=== PATIENT | male | born 1955 | race Caucasian/White ===

== ENCOUNTER → 2020-01-29 12:12 | Outpatient (CLI) | payer MEDICARE, SELFPAY ==
--- NOTE | ~2020-01-29 | XR_ITS ---
XR femur LT min 2V, XR hip LT 2V w AP pelvis 01/29/2020 13:11 Indication: Left leg and hip pain Procedure: 3 views left hip and 4 views left femur Comparison: No prior studies for comparison. Findings: Pelvic rings are intact. Mild degenerative changes of the lower lumbar spine and hips. Sacr al foramen are symmetric. No fracture or traumatic malalignment. Impression: 1: Mild polyarticular osteoarthritis. Reviewed, dictated and finalized at location B. NG TECHNICIAN Impression: 1: Mild polyarticular osteoarthritis. Impression: 1: Mild polyarticular osteoarthritis.
--- NOTE | ~2020-01-29 | XR_ITS ---
EXAMINATION: XR tibia fibula LT 2V DATE: 01/29/2020 13:11 INDICATION: Left lower leg injury and pain. TECHNIQUE: 2 views of left tibia and fibula were obtained. COMPARISON: None. FINDINGS: Bone alignment is normal. No fracture. Joint spaces are well maintained. IMPRESSION: 1. No fracture. Reviewed, dictated and finalized at location A. CASHIER IMPRESSION: 1. No fracture.
--- NOTE | ~2020-01-29 | XR_ITS ---
XR knee LT 2V 01/29/2020 13:11 Indication: Left leg pain Procedure: 2 views left knee Comparison: No prior studies for comparison. Findings: Mild degenerative changes of the left knee. No fracture, subluxation or dislocation. No sig nificant joint effusion Impression: 1: Mild osteoarthritis of the left knee. Reviewed, dictated and finalized at location B. ICAL PROGRAM MANAGER Impression: 1: Mild osteoarthritis of the left knee.
== END ==
PROVIDERS: PCP Family Medicine; Visit Provider Family Medicine
DX: M16.12 Unilateral primary osteoarthritis, left hip (principal); M17.12 Unilateral primary osteoarthritis, left knee
CPT/HCPCS: 73502; 73521; 73552; 73560; 73590

== ENCOUNTER → 2021-01-24 16:57 | Outpatient (CLI) | payer MEDICARE, SELFPAY ==
--- NOTE | ~2021-01-24 | XR_ITS ---
EXAMINATION: XR shoulder RT min 2V DATE: 01/24/2021 19:14 INDICATION: Unspecified fall, initial encounter. TECHNIQUE: 4 views of right shoulder were obtained. COMPARISON: None. FINDINGS: Bone alignment is normal. No fracture. Glenohumeral joint is normal. There is mild osteoart hritis of the acromioclavicular joint. IMPRESSION: 1. Mild osteoarthritis of the acromioclavicular joint. Reviewed, dictated and finalized at location A. SKINNER
--- NOTE | ~2021-01-24 | XR_ITS ---
EXAMINATION: XR ribs RT 2V w CXR 2V DATE: 01/24/2021 19:14 INDICATION: Unspecified fall, initial encounter. Right chest pain. TECHNIQUE: Frontal and lateral views of the chest and 3 views of the right ribs were obtained. COMPARISON: chest two views 10/31/12 FINDINGS: CHEST TWO VIEWS: There is mild osteoarthritis at the lung bases. No pleural effusion or pneumothorax. The heart size is normal. There is an electrode in left neck with an electronic device overlying lef t chest. RIGHT RIBS: There is an old healed fracture of right fifth rib. There is an old healed fracture of di stal right clavicle. IMPRESSION: 1. No acute fracture. Reviewed, dictated and finalized at location A. RONMENTAL STUDIES FACULTY MEMBER IMPRESSION: 1. No acute fracture.
--- NOTE | ~2021-01-24 | XR_ITS ---
EXAMINATION: XR hip RT 2V w AP pelvis DATE: 01/24/2021 19:14 INDICATION: Unspecified fall, initial encounter. TECHNIQUE: An anteroposterior view of the pelvis and 2 views of right hip were obtained. COMPARISON: Pelvis radiograph 01/29/2020 FINDINGS: There is dextroscoliosis and severe spondylosis of lumbar spine. No fracture. There is mild osteoarthritis of the hips. IMPRESSION: 1. Mild osteoarthritis of the hips. Reviewed, dictated and finalized at location A. TLE VENEERING SUPERVISOR
== END ==
PROVIDERS: Visit Provider Family Medicine
DX: R07.89 Other chest pain (principal); M16.0 Bilateral primary osteoarthritis of hip; M25.511 Pain in right shoulder
CPT/HCPCS: 71046; 71100; 73030; 73502

== ENCOUNTER → 2022-07-02 08:41 | Outpatient (CLI) | payer MEDICARE, SELFPAY ==
--- NOTE | ~2022-07-02 | US_ITS ---
EXAMINATION: US right upper quadrant DATE: 07/02/2022 09:16 INDICATION: Abnormal levels of other serum enzymes. TECHNIQUE: Multiple grayscale and Doppler ultrasound images of the abdomen were obtained. COMPARISON: CT abdomen and pelvis 05/07/2014 FINDINGS: The visualized portions of the head and body of the pancreas are normal. The liver is trisha l without focal lesion. There is normal flow in main portal vein. The gallbladder is normal in size. No gallstones or gallbladder wall thickening. There is no sonographic sign. The common duct is normal and measures 4 mm. IMPRESSION: 1. Normal right upper quadrant ultrasound. Reviewed, dictated and finalized at location A.
== END ==
PROVIDERS: PCP Family Medicine; Visit Provider Family Medicine
DX: R74.8 Abnormal levels of other serum enzymes (principal)
CPT/HCPCS: 76705

== ENCOUNTER 2022-09-15 17:26 | Emergency (ER) | payer MEDICARE, SELFPAY ==
--- NOTE | ~2022-09-15 | XR_ITS ---
EXAMINATION: XR ribs LT 2V w CXR 2V Exam Date/Time: 09/15/2022 18:00 CDT HISTORY: left side chest wall pain. fall around 2 weeks ago Comparison: 01/24/2021. RESULT: Lines, tubes, and devices: Left chest stimulator pack, leads terminate over the left lower neck. Lungs and pleura: Left basilar scar, otherwise clear. Cardiomediastinal silhouette: Stable. Other: No acute osseous or upper abdominal finding. Thoracolumbar scoliosis. IMPRESSION: No acute cardiopulmonary process. No acute osseous finding in the left ribs. Reviewed, dictated and finalized at location K.
--- NOTE | 2022-09-15 17:29 | ED.CHESTPAIN ---
HPI - Chest Pain General Chief Complaint: Fall Stated Complaint: CHEST PAIN Time Seen by Provider: 09/15/22 17:38 Source: patient, family (brother) and RN notes reviewed Mode of arrival: ambulatory Limitations: no limitations History of Present Illness HPI narrative: 66-year-old male with history of epilepsy presents to the [facility] with left-sided chest wall pain that occurred approximately 2:00 p.m. today. Patient's brother gives history. Patient fell approximately 2 weeks ago landing with the left chest on a wooden TV tray. Broke a small table. Was not seen at that time. Intermittently over the last 2-3 weeks has been stating he is having pain to the left ribs with movement and with doing his exercises. Called primary care provider and was referred to the [facility] for x-ray. Currently pain-free. Unable to reproduce any pain of the chest wall or abdomen. No bruising, swelling noted. No signs of infection. Patient is nontoxic and in no distress. When patient is asked about his pain he points to the anterior, lateral ribs and into the left upper abdomen. Currently pain-free and unable to reproduce pain Onset (ago): week(s) (2-3) Related Data Home Medications Medication Instructions Recorded Confirmed calcium carbonate 600 mg calcium 600 mg PO BID 02/12/20 09/15/22 (1,500 mg) tablet (Calcium) levetiracetam 1,000 mg tablet 1,000 mg PO DAILY 03/17/21 09/15/22 cenobamate 100 mg tablet (Xcopri) 200 mg PO DAILY 11/13/21 09/15/22 divalproex 500 mg tablet,extended 500 mg PO DAILY 06/11/22 09/15/22 release 24 hr Allergies Allergy/AdvReac Type Severity Reaction Status Date / Time No Known Allergies Allergy Verified 09/15/22 17:29 Review of Systems Review of Systems: All systems reviewed & are unremarkable except as noted in HPI and below Constitutional: Constitutional: Reports no additional constitutional complaints, Denies chills and Denies fever(s) Eyes: Eyes: Reports no additional eye complaints ENT: Reports system reviewed and no additional complaints, except as documented Cardiovascular: Cardiovascular: Reports no additional cardiovascular complaints Respiratory: Respiratory: Reports no additional respiratory complaints Gastrointestinal: Gastrointestinal: Reports no additional gastrointestinal complaints Musculoskeletal: Musculoskeletal: Reports as per HPI Integumentary/Breasts: Skin/Breast: Reports system reviewed and no additional complaints, except as docu Neurologic: Reports system reviewed and no additional complaints, except as documented Psychiatric: Psychiatric: Reports no additional psychiatric complaints Allergic/Immunologic: Allergic/Immunologic: Reports no additional allergic/immunologic complaints PMFSH Past Medical History Medical History (Updated 09/15/22 @ 19:10 by Christina Lr APRN) Ambulatory dysfunction Dysmetabolic syndrome X Elevated liver enzymes Epilepsy Hepatitis C antibody test negative (05/19/17) Mixed hyperlipidemia Weakness Surgical History Surgical History (Updated 09/15/22 @ 19:10 by Christina Lr APRN) History of brain surgery Family History Family History Father Diabetes mellitus Hypertension Mother Hypertension Family history of elevated blood lipids Other Family history of cardiovascular disease Family history of coronary artery disease Family history of osteoarthritis Social History Social History Smoking status: Never smoker Alcohol intake: never Comments At the time of my signature, I reviewed and agree with the nursing past medical, surgical, social, and family history. There is no relevant family history pertinent to the patient complaint. Exam Const: General: healthy appearing, no acute distress, alert and well nourished Nutritional Appearance: well nourished Orientation/consciousness: patient sidney
[2022-09-15 17:38] VITALS: BP 135/72; PULSE 48; RESP 18; TEMP 35.9; O2SAT 99
--- NOTE | 2022-09-15 17:51 | ECG_ITS ---
Measurements Intervals [place] Rate: 48 P: 39 OK: 155 QRS: 34 QRSD: 90 T: 44 QT: 433 QTc: 390 Interpretive Statements SINUS BRADYCARDIA POSSIBLE RIGHT VENTRICULAR CONDUCTION DELAY [RSR (QR) IN V1/V2] BORDERLINE ECG NO PREVIOUS ECG AVAILABLE FOR COMPARISON Electronically Signed On 09-16-2022 10:17:19 CDT by Luis Enrique Flowers M.D.
[2022-09-15 18:40] VITALS: PULSE 58; O2SAT 97
== END 2022-09-15 18:44 | disposition home or self-care (01) ==
PROVIDERS: Emergency Provider Nurse Practitioner; PCP Family Medicine
DX: R07.89 Other chest pain (principal); R00.1 Bradycardia, unspecified; E78.2 Mixed hyperlipidemia; G40.909 Epilepsy, unspecified, not intractable, without status epilepticus; E88.81 Metabolic syndrome and other insulin resistance
CPT/HCPCS: 71046; 71100; 93005; 99213; G0463

== ENCOUNTER 2022-12-21 17:56 | Emergency (ER) | payer MEDICARE, SELFPAY ==
--- NOTE | ~2022-12-21 | XR_ITS ---
EXAM: XR shoulder LT min 2V DATE: 12/21/2022 19:14 HISTORY: left shoulder pain radiates down arm/no injury . COMPARISON: 06/10/2012. FINDINGS: Left chest stimulator, leads projecting over the lower neck. Decreased mineralization. No fracture or dislocation. No lytic or blastic lesion. Mild degenerative change at the acromioclavicula r joint and glenohumeral joint. No erosion or periosteal change. Soft tissues within normal limits. IMPRESSION: Mild polyarticular osteoarthritis. Reviewed, dictated and finalized at location K. ING MACHINE TENDER
[2022-12-21 18:16] VITALS: BP 135/84; PULSE 91; RESP 16; TEMP 36.4; O2SAT 99
--- NOTE | 2022-12-21 19:00 | ED.GENADULT ---
HPI - General Adult General Chief complaint: Extremity Problem,Nontraumatic Stated complaint: lt shoulder/arm pain Time Seen by Provider: 12/21/22 19:22 Source: patient, RN notes reviewed and old records reviewed Mode of arrival: ambulatory Limitations: no limitations History of Present Illness HPI narrative: 67-year-old male presents to [facility] accompanied by [id number] with complaints of pain to his left shoulder radiating down his arm. Patient has been attending physical therapy and thinks he may of over done it. Patient reports that when he moves his arm a certain way it makes his shoulder hurt worse. Patient reports that pain radiates down his left lower arm at times. Patient denies any tingling or numbness to his left arm. MD complaint: left shoulder pain Onset (ago): day(s) (3) Location: upper extremity (left shoulder) Severity scale (1-10): 4 Treatments prior to arrival: none Related Data Home Medications Medication Instructions Recorded Confirmed calcium carbonate 600 mg calcium 600 mg PO BID 02/12/20 12/21/22 (1,500 mg) tablet (Calcium) aspirin 325 mg tablet 325 mg PO DAILY 12/10/22 12/21/22 cenobamate 100 mg tablet (Xcopri) 300 mg PO QHS 12/10/22 12/21/22 cholecalciferol (vitamin D3) 25 25 mcg PO DAILY 12/10/22 12/21/22 mcg (1,000 unit) capsule docusate sodium 100 mg capsule 100 mg PO DAILY 12/10/22 12/21/22 (Dulcolax Stool Softener (docusate)) levetiracetam 1,000 mg tablet 1,000 mg PO DAILY 12/10/22 12/21/22 multivitamin 1 tablet PO DAILY 12/10/22 12/21/22 Allergies Allergy/AdvReac Type Severity Reaction Status Date / Time No Known Allergies Allergy Verified 12/21/22 18:09 Review of Systems Review of Systems: CONSTITUTIONAL: Denies fever, chills, or sweats. EYES: Denies visual changes, redness, or discharge. ENT: Denies rhinorrhea, congestion, sore throat, or otalgia. CARDIOVASCULAR: Denies chest pain, palpitations, or edema. RESPIRATORY: Denies cough or dyspnea. GASTROINTESTINAL: Denies abdominal pain, nausea, vomiting, or diarrhea. GENITOURINARY: Denies dysuria or hematuria. SKIN: Denies rash or itching. MUSCULOSKELETAL: Denies back pain,positive for left shoulder discomfort radiates down left arm, or myalgia. NEUROLOGIC: Denies headache, numbness, or increased weakness PSYCHIATRIC: Denies anxiety or depression. All systems reviewed & are unremarkable except as noted in HPI and below PMFSH Past Medical History Medical History (Updated 12/23/22 @ 18:56 by Rohini Hurtado NP) Ambulatory dysfunction Dysmetabolic syndrome X Elevated liver enzymes Epilepsy Hepatitis C antibody test negative (05/19/17) Mixed hyperlipidemia Weakness Surgical History Surgical History (Updated 09/15/22 @ 19:10 by Christina Lr APRN) History of brain surgery Family History Family History Father Diabetes mellitus Hypertension Mother Hypertension Family history of elevated blood lipids Other Family history of cardiovascular disease Family history of coronary artery disease Family history of osteoarthritis Social History Social History Smoking status: Never smoker Alcohol intake: never Comments At time of signature, agree with nursing past medical, surgical, social and family history. There is no relevant family history pertinent to the presenting complaint Exam Narrative: GENERAL: Well-appearing, well-nourished, and in no acute distress. HEAD: Normocephalic, atraumatic. EYES: PERRLA and EOMI. ENT: Nares clear, no rhinorrhea or epistaxis. Mucous membranes moist.TMs normal with good light reflex, throat pink with no swelling NECK: Supple.no lymphadenopathy CHEST: Clear to auscultation. No respiratory distress.SAO2 99% on room air HEART: Regular rate and rhythm. No murmur heard. Normal peripheral pulses. ABDOMEN: Soft, nontender, nondistended, normal active bowel s
== END 2022-12-21 19:51 | disposition home or self-care (01) ==
PROVIDERS: Emergency Provider Registered Nurse; PCP Family Medicine
DX: M19.012 Primary osteoarthritis, left shoulder (principal); G40.909 Epilepsy, unspecified, not intractable, without status epilepticus; E78.2 Mixed hyperlipidemia; E88.81 Metabolic syndrome and other insulin resistance
CPT/HCPCS: 73030; 99213; G0463

== ENCOUNTER 2023-02-22 14:22 | Emergency (ER) | payer MEDICARE, SELFPAY ==
--- NOTE | ~2023-02-22 | XR_ITS ---
EXAMINATION: XR pelvis 1-2V INDICATION: Pelvic pain after fall TECHNIQUE: AP view the pelvis is obtained. COMPARISON: 01/24/2021 FINDINGS: Bone alignment is normal. There is no fracture. Phleboliths are noted in the pelvis. There is a bone island of the right acetabulum. There is mild osteoarthritis of the hips. IMPRESSION: 1. Mild osteoarthritis of the hips. Reviewed, dictated and finalized at location F.
--- NOTE | ~2023-02-22 | XR_ITS ---
EXAMINATION: XR sacrum coccyx min 2V INDICATION: Pain after fall TECHNIQUE: Three views of the sacrum and coccyx are obtained. COMPARISON: CT, 05/07/2014 FINDINGS: Bone alignment is normal. There is no fracture. There is chronic mild loss of anterior endp late identified in the L1 vertebral body. Calcified atherosclerosis is noted. There is a phlebolith r ight pelvis. A bone island is noted in the right acetabulum. IMPRESSION: 1. No acute osseous abnormality. Reviewed, dictated and finalized at location F.
[2023-02-22 14:40] VITALS: BP 84/59; PULSE 92; RESP 16; TEMP 36.7; O2SAT 95
[2023-02-22 14:43] VITALS: BP 84/59; PULSE 92; RESP 16; TEMP 36.7; O2SAT 95
--- NOTE | 2023-02-22 15:18 | ED.GENADULT ---
HPI - General Adult General Chief complaint: Extremity Injury, Lower Stated complaint: fall, buttock injury Time Seen by Provider: 02/22/23 15:05 Source: patient, RN notes reviewed and old records reviewed Mode of arrival: ambulatory (with walker) Limitations: no limitations History of Present Illness HPI narrative: 67 year old male accompanied by brother and mother with reports that patient fell about 2weeks ago and bruised his sacral area with no complaints of lingering pain after fall. Brother reports yesterday he had a seizure and fell again and now has pain to left side of hip and wing posterior of pelvis. Brother reports that patient was having some pain to areas and he would like to have him x-rayed to make sure nothing is fractured. Patient has bruising noted to sacral area with no obvious redness or bruising to left hip or buttocks. Patient states no pain when sitting still but pain with movement.Patient uses walker at times with ambulation. MD complaint: falls with injury to sacrum and left pelvis area Onset (ago): week(s) (yesterday pelvis 2 weeks sacrum) Severity scale (1-10): 5 (with movement) Quality: aching Treatments prior to arrival: other (tylenol) Related Data Home Medications Medication Instructions Recorded Confirmed calcium carbonate 600 mg calcium 600 mg PO BID 02/12/20 02/22/23 (1,500 mg) tablet (Calcium) cenobamate 100 mg tablet (Xcopri) 300 mg PO QHS 12/10/22 02/22/23 cholecalciferol (vitamin D3) 25 25 mcg PO DAILY 12/10/22 02/22/23 mcg (1,000 unit) capsule levetiracetam 1,000 mg tablet 1,000 mg PO DAILY 12/10/22 02/22/23 multivitamin 1 tablet PO DAILY 12/10/22 02/22/23 divalproex 500 mg tablet,delayed 500 mg PO DAILY 02/22/23 02/22/23 release (Depakote) Allergies Allergy/AdvReac Type Severity Reaction Status Date / Time No Known Allergies Allergy Verified 12/31/22 13:38 Review of Systems Review of Systems: CONSTITUTIONAL: Denies fever, chills, or sweats. EYES: Denies visual changes, redness, or discharge. ENT: Denies rhinorrhea, congestion, sore throat, or otalgia. CARDIOVASCULAR: Denies chest pain, palpitations, or edema. RESPIRATORY: Denies cough or dyspnea. GASTROINTESTINAL: Denies abdominal pain, nausea, vomiting, or diarrhea. GENITOURINARY: Denies dysuria or hematuria. SKIN: Denies rash or itching. MUSCULOSKELETAL:Reports sacral back pain,posterior left buttock area pain pain, or myalgia. NEUROLOGIC: Denies headache, numbness, or weakness. PSYCHIATRIC: Denies anxiety or depression. All systems reviewed & are unremarkable except as noted in HPI and below PMFSH Past Medical History Medical History Ambulatory dysfunction Dysmetabolic syndrome X Elevated liver enzymes Epilepsy Hepatitis C antibody test negative (05/19/17) Mixed hyperlipidemia Weakness Surgical History Surgical History History of brain surgery Family History Family History Father Diabetes mellitus Hypertension Mother Hypertension Family history of elevated blood lipids Other Family history of cardiovascular disease Family history of coronary artery disease Family history of osteoarthritis Social History Social History Smoking status: Never smoker Alcohol intake: never Lack of Transportation: No Lack of Food: Never True Current Housing: I Have Housing Concerned About Future Housing: No Difficulty Paying Gas/Electric Bills: No Difficulty Paying for Meds: No Currently Unemployed: No Education: High School Diploma/GED Difficulty w/ Childcare or Family Care: No Comments At time of signature, agree with nursing past medical, surgical, social and family history. There is no relevant family history pertinent to the presenting complaint Exam Narrative: Kelley
== END 2023-02-22 15:42 | disposition home or self-care (01) ==
PROVIDERS: Emergency Provider Registered Nurse; PCP Family Medicine
DX: S30.0XXA Contusion of lower back and pelvis, initial encounter (principal); E78.2 Mixed hyperlipidemia; W19.XXXA Unspecified fall, initial encounter
CPT/HCPCS: 72170; 72220; 99213; G0463

== ENCOUNTER 2023-03-10 15:09 | Emergency (ER) | payer MEDICARE, SELFPAY ==
--- NOTE | ~2023-03-10 | XR_ITS ---
XR knee LT 3V 03/10/2023 16:03 Indication: Left knee pain Procedure: 3 views left knee Comparison: 01/29/2020 Findings: There is mild osteoarthritis. No fracture, subluxation or dislocation. No joint effusion. N o foreign bodies. Impression: 1: No acute bone or joint abnormality. Reviewed, dictated and finalized at location B. Impression: 1: No acute bone or joint abnormality.
--- NOTE | 2023-03-10 15:13 | ED.LOWEXIN ---
HPI - Extremity Injury (Lower) General Chief Complaint: Extremity Problem,Nontraumatic Stated Complaint: L LEG BRUISING Time Seen by Provider: 03/10/23 15:13 Source: patient, family and RN notes reviewed History of Present Illness HPI Narrative: Patient is a 67-year-old male who presents to Urgent Care with his POA/brother. Brother states that they believe he fell and hit his bed frame approximately 2 weeks ago. Injury was noted to be behind the left knee. Brother states that over the last week he has had increased swelling and spread of bruising down the left lower leg. States that he is now refusing to bear weight on the left lower leg. Patient has severe epilepsy but does typically ambulate with either a walker or with assistance. Patient is not ambulating at this time. No other acute complaints or injuries. No acute distress noted. Patient denies shortness of breath or chest pain. Patient and brother aware of the plan of care. Some parts of this dictation were generated by voice recognition software and may contain typographical and/or grammatical inaccuracies. Related Data Home Medications Medication Instructions Recorded Confirmed calcium carbonate 600 mg calcium 600 mg PO BID 02/12/20 02/22/23 (1,500 mg) tablet (Calcium) cholecalciferol (vitamin D3) 25 25 mcg PO DAILY 12/10/22 02/22/23 mcg (1,000 unit) capsule levetiracetam 1,000 mg tablet 1,000 mg PO DAILY 12/10/22 02/22/23 multivitamin 1 tablet PO DAILY 12/10/22 02/22/23 divalproex 500 mg tablet,delayed 500 mg PO DAILY 02/22/23 02/22/23 release (Depakote) cenobamate 200 mg tablet (Xcopri) 400 mg PO DAILY 03/10/23 Allergies Allergy/AdvReac Type Severity Reaction Status Date / Time No Known Allergies Allergy Verified 03/10/23 15:29 Review of Systems Review of Systems: CONSTITUTIONAL: Denies fever, chills, or sweats. EYES: Denies visual changes, redness, or discharge. ENT: Denies rhinorrhea, congestion, sore throat, or otalgia. CARDIOVASCULAR: Denies chest pain, palpitations, or edema. RESPIRATORY: Denies cough or dyspnea. GASTROINTESTINAL: Denies abdominal pain, nausea, vomiting, or diarrhea. GENITOURINARY: Denies dysuria or hematuria. SKIN: Denies rash or itching. MUSCULOSKELETAL: Reports of pain, swelling and bruising to the left lower leg NEUROLOGIC: Denies headache, numbness, or weakness. All other systems reviewed are negative, except as documented in HPI. [facility] Past Medical History Medical History Ambulatory dysfunction Dysmetabolic syndrome X Elevated liver enzymes Epilepsy Hepatitis C antibody test negative (05/19/17) Mixed hyperlipidemia Weakness Surgical History Surgical History History of brain surgery Family History Family History Father Diabetes mellitus Hypertension Mother Hypertension Family history of elevated blood lipids Other Family history of cardiovascular disease Family history of coronary artery disease Family history of osteoarthritis Social History Social History Smoking status: Never smoker Alcohol intake: never Lack of Transportation: No Lack of Food: Never True Current Housing: I Have Housing Concerned About Future Housing: No Difficulty Paying Gas/Electric Bills: No Difficulty Paying for Meds: No Currently Unemployed: No Education: High School Diploma/GED Difficulty w/ Childcare or Family Care: No Comments At the time of my signature, I reviewed and agree with the nursing past medical, surgical, social, and family history. There is no relevant family history pertinent to the patient complaint. Exam Narrative: GENERAL: This is a well-nourished, well-developed patient, in no apparent distress. HEAD: normocephalic, atraumatic. EYES: PERRL. Sclera
[2023-03-10 15:25] VITALS: BP 103/64; PULSE 72; RESP 16; TEMP 36.4; O2SAT 97
== END 2023-03-10 16:38 | disposition home or self-care (01) ==
PROVIDERS: Emergency Provider Nurse Practitioner Family; PCP Family Medicine
DX: M79.662 Pain in left lower leg (principal); M79.89 Other specified soft tissue disorders; E78.2 Mixed hyperlipidemia; W06.XXXA Fall from bed, initial encounter
CPT/HCPCS: 73562; 99213; G0463

== ENCOUNTER → 2023-03-11 14:53 | Outpatient (CLI) | payer MEDICARE, SELFPAY ==
--- NOTE | ~2023-03-11 | US_ITS ---
EXAMINATION:US venous doppler LE LT INDICATION:Left lower extremity pain TECHNIQUE: Multiple grayscale, color flow and Doppler images of the left lower extremity deep venous systems were obtained and reviewed. COMPARISON:No prior FINDINGS: The common femoral, superficial femoral and popliteal veins demonstrate normal respiratory variation, augmentation and compressibility. Color flow is also seen within the posterior tibial, pe roneal, greater saphenous and profunda veins. IMPRESSION: 1: No lower extremity deep venous thrombosis. Reviewed, dictated and finalized at location L.
== END ==
PROVIDERS: PCP Family Medicine; Visit Provider Family Medicine
DX: M79.662 Pain in left lower leg (principal); M79.89 Other specified soft tissue disorders
CPT/HCPCS: 93971

== ENCOUNTER 2023-04-02 16:15 | Emergency (ER) | payer MEDICARE, SELFPAY ==
--- NOTE | ~2023-04-02 | XR_ITS ---
EXAMINATION: XR hand LT min 3V DATE: 04/02/2023 16:45 INDICATION: Laceration at the palm of the left hand post fall TECHNIQUE: Posteroanterior, oblique and lateral views of the left hand were obtained. COMPARISON: None. FINDINGS: No acute fracture or acute traumatic malalignment. Again seen are old healed fracture deformities at the necks of the left third and fourth proximal phalanges which have healed with angulation resulting in radial angulation of the fourth proximal interphalangeal joint and dorsal/ulnar angulation at the third proximal interphalangeal joint. There is also mild dorsal/ulnar subluxation of the third proxi mal interphalangeal joint. There is severe secondary osteoarthritis at the third proximal interphalan geal joint and moderate osteoarthritis at the fourth proximal interphalangeal joint. Additional moder ate osteoarthritis at the fifth proximal interphalangeal joint and mild osteoarthritis at the third-f ifth distal interphalangeal joints. IMPRESSION: 1. No acute osseous or mild to . 2. Old healed fracture deformities at the necks of the left third and fourth proximal phalanges with corresponding chronic malalignment as detailed above. 3. Polyarticular osteoarthritis including severe secondary osteoarthritis at the third proximal inter phalangeal joint and mild to moderate osteoarthritis at a few of the remaining interphalangeal joints . Reviewed, dictated and finalized at location B. IMPRESSION: 1. No acute osseous or mild to . 2. Old healed fracture deformities at the necks of the left third and fourth pr oximal phalanges with corresponding chronic malalignment as detailed above. 3. Polyarticular osteoarthritis including severe secondary osteoarthritis at th e third proximal interphalangeal joint and mild to moderate osteoarthritis at a few of the remaining interphalangeal joints.
--- NOTE | 2023-04-02 16:29 | ED.SKABFB ---
HPI - Skin/Abscess/Foreign Bdy General Chief complaint: Skin/Abscess/Foreign Body Stated complaint: lt hand/finger injury Time Seen by Provider: 04/02/23 16:29 Source: patient Mode of arrival: ambulatory Limitations: no limitations History of Present Illness HPI narrative: Ernie is a 67-year-old male patient presenting to the clinic today with complaints of falling and injuring his left hand. He has a laceration to the left hand from his fall that occurred when he slipped on a rug this morning. He denies any pain to the 5th finger and has full range of motion. Tetanus shot up-to-date Related Data Home Medications Medication Instructions Recorded Confirmed calcium carbonate 600 mg calcium 600 mg PO BID 02/12/20 04/02/23 (1,500 mg) tablet (Calcium) cholecalciferol (vitamin D3) 25 25 mcg PO DAILY 12/10/22 04/02/23 mcg (1,000 unit) capsule levetiracetam 1,000 mg tablet 1,000 mg PO DAILY 12/10/22 04/02/23 multivitamin 1 tablet PO DAILY 12/10/22 04/02/23 divalproex 500 mg tablet,delayed 500 mg PO DAILY 02/22/23 04/02/23 release (Depakote) cenobamate 200 mg tablet (Xcopri) 400 mg PO DAILY 03/10/23 04/02/23 Allergies Allergy/AdvReac Type Severity Reaction Status Date / Time No Known Allergies Allergy Verified 04/02/23 16:23 Review of Systems Review of Systems: Pertinent positives per HPI. Patient denies any fever, chills, rash, headache, visual changes, dizziness, cough, shortness of breath, chest pain, palpitations, nausea, vomiting, diarrhea, constipation, abdominal pain, or any urinary issues. [facility] Past Medical History Medical History Ambulatory dysfunction Dysmetabolic syndrome X Elevated liver enzymes Epilepsy Hepatitis C antibody test negative (05/19/17) Mixed hyperlipidemia Weakness Surgical History Surgical History History of brain surgery Family History Family History Father Diabetes mellitus Hypertension Mother Hypertension Family history of elevated blood lipids Other Family history of cardiovascular disease Family history of coronary artery disease Family history of osteoarthritis Social History Social History Smoking status: Never smoker Alcohol intake: never Lack of Transportation: No Lack of Food: Never True Current Housing: I Have Housing Concerned About Future Housing: No Difficulty Paying Gas/Electric Bills: No Difficulty Paying for Meds: No Currently Unemployed: No Education: High School Diploma/GED Difficulty w/ Childcare or Family Care: No Comments At the time of my signature, I reviewed and agree with the nursing past medical, surgical, social, and family history. There is no relevant family history pertinent to the patient complaint. Exam Narrative: General: Well-developed, well nourished, in no apparent distress Head: Normocephalic, atraumatic. Cardio: Regular rate and rhythm, s1 and s2 normal, no murmur appreciated. Resp: Clear to auscultation bilaterally, no rhonchi, rales, wheezing or rubs. Musculoskeletal: No deformity, skin flap laceration to the ulnar aspect of the left volar hand-flap laceration measuring 2 x 1.5cm, tender to palpation, grossly normal range of motion, muscle strength strong and equal, peripheral pulse strong, no edema, no cyanosis, normal gait and station Course Course Emergency Course: Portions of this record may have been created with voice recognition software. Level of Care: Express Care Visit Vital Signs Vital signs: Vital signs reviewed Procedures Laceration Laceration 1: Date: 04/02/23 Time: 17:49 Site: hand Side (If applicable): left Size (cm): 2 Description: flap Depth: simple, single layer (Involvin
[2023-04-02 16:33] VITALS: BP 171/69; PULSE 63; RESP 16; TEMP 36.3; O2SAT 98
[2023-04-02] MEDS: LIDOCAINE HCL 1% LOCAL INJ 2 ML AMPUL 6 ML INFILTRATE (16:53)
== END 2023-04-02 17:45 | disposition home or self-care (01) ==
PROVIDERS: Emergency Provider Nurse Practitioner Family; PCP Family Medicine
DX: S61.412A Laceration without foreign body of left hand, initial encounter (principal); W01.0XXA Fall on same level from slipping, tripping and stumbling without subsequent striking against object, initial encounter; E78.2 Mixed hyperlipidemia; G40.909 Epilepsy, unspecified, not intractable, without status epilepticus
CPT/HCPCS: 12001; 73130; 99213; G0463

== ENCOUNTER 2023-06-19 17:18 | Emergency (ER) | payer MEDICARE, SELFPAY ==
--- NOTE | ~2023-06-19 | CT_ITS ---
EXAMINATION: CT brain wo con DATE: 06/19/2023 18:37 INDICATION: Epilepsy, head injury . TECHNIQUE: Computed tomography (CT) of the head was performed without intravenous contrast. The mA wa s adjusted according to patient size. Iterative reconstruction technique was employed. The dose-lengt h product was 605.33 mGy-cm. COMPARISON: 03/08/2014. FINDINGS: No acute intracranial hemorrhage or extra-axial fluid collection. No hydrocephalus, mass, or herniation. No acute ischemic infarct. Unremarkable dural venous sinus attenuation. No acute osseous abnormality. Old bifrontal craniotomy. Right parietal scalp laceration with skin sta ples. The aerated spaces are clear. Moderate atrophy and mild chronic white matter change. Small focus of right frontal encephalomalacia. Likely changes of corpus callosotomy. IMPRESSION: No acute intracranial process. Reviewed, dictated and finalized at location K.
--- NOTE | ~2023-06-19 | XR_ITS ---
EXAM: XR hand RT min 3V DATE: 06/19/2023 18:03 HISTORY: Mechancial fall and injury . COMPARISON: None available. FINDINGS: Lateral view limited by overlapping fingers Normal mineralization. Triangular fragment chicho ng the proximal and medial aspect of the right fourth proximal phalange. No lytic or blastic lesion. Joint spaces are maintained. No erosion or periosteal change. Dorsal soft tissue swelling. IMPRESSION: Acute versus chronic avulsion fracture fragment adjacent to the proximal and lateral aspe ct of the right fourth proximal phalange. Correlate with point tenderness. Reviewed, dictated and finalized at location K. IMPRESSION: Acute versus chronic avulsion fracture fragment adjacent to the pro ximal and lateral aspect of the right fourth proximal phalange. Correlate with point tenderness.
[2023-06-19 17:20] VITALS: BP 106/79; PULSE 65; RESP 18; TEMP 37; O2SAT 100
--- NOTE | 2023-06-19 17:49 | ED.GENADULT ---
HPI - General Adult General Chief complaint: Head Injury Stated complaint: fall with head injury Time Seen by Provider: 06/19/23 17:33 History of Present Illness HPI narrative: 67-year-old male history of severe epilepsy brought in by son after patient had seizure and hit his head. Per patient's family member, patient usually has a seizures when sitting in his uninjured. However today he was attempting to walk, when family noted he had a seizure and fell and hit his right of his head. They noted a laceration so brought patient in for further evaluation. Patient is taking anticonvulsant therapy, they are being seen at [facility] for possible neurosurgical intervention for his severe epilepsy. They denied other complaints, fevers, chills, nausea, vomiting, chest pain, shortness of breath, abdominal pain, dysuria. Patient is currently at his usual mental baseline. Reports TDAP updated a few months prior. Related Data Home Medications Medication Instructions Recorded Confirmed calcium carbonate 600 mg calcium 600 mg PO BID 02/12/20 05/26/23 (1,500 mg) tablet (Calcium) cholecalciferol (vitamin D3) 25 25 mcg PO DAILY 12/10/22 05/26/23 mcg (1,000 unit) capsule levetiracetam 1,000 mg tablet 1,000 mg PO DAILY 12/10/22 05/26/23 multivitamin 1 tablet PO DAILY 12/10/22 05/26/23 divalproex 500 mg tablet,delayed 500 mg PO DAILY 02/22/23 05/26/23 release (Depakote) cenobamate 200 mg tablet (Xcopri) 400 mg PO DAILY 03/10/23 04/12/23 Allergies Allergy/AdvReac Type Severity Reaction Status Date / Time No Known Allergies Allergy Verified 06/19/23 17:19 Review of Systems Review of Systems: See HPI [facility] Past Medical History Medical History Ambulatory dysfunction Dysmetabolic syndrome X Elevated liver enzymes Epilepsy Hepatitis C antibody test negative (05/19/17) Laceration Mixed hyperlipidemia Weakness Surgical History Surgical History History of brain surgery Family History Family History Father Diabetes mellitus Hypertension Mother Hypertension Family history of elevated blood lipids Other Family history of cardiovascular disease Family history of coronary artery disease Family history of osteoarthritis Social History Social History Smoking status: Never smoker Alcohol intake: never Lack of Transportation: No Lack of Food: Never True Current Housing: I Have Housing Concerned About Future Housing: No Difficulty Paying Gas/Electric Bills: No Difficulty Paying for Meds: No Currently Unemployed: No Education: High School Diploma/GED Difficulty w/ Childcare or Family Care: No Exam Narrative: General: Alert, calm and cooperative, no acute distress, phonating, sitting comfortably during visit HEENT: Pupils equal round and reactive to light, extra ocular movements intact, no conjunctival injection, 3cm right parietal laceration, no arterial bleeding, no step offs, remaining head atraumatic, neck supple without meningismus Cardiovascular: Regular rate and rhythm, no visible jugular venous distension Respiratory: Lungs clear to auscultation bilaterally, no wheezing/rales/rhonchi Abdominal: soft, non-tender, non-distended, no guarding, no rebound/peritoneal signs, no costovertebral tenderness to palpation Back: no midline tenderness to palpation, no step offs Extremities: Right dorsal hand with hematoma and abrasions, caplillary refill <2 seconds, flexion and extension full range, ulnar/radial pulses palpable, radial/ulnar/median sensorimotor within normal limits, remaining extremities within normal limits, No edema, palpable peripheral pulses, warm, well perfused, no tenderness to bilateral calves Neurological: Alert, moving all extremities symmetrically Course Vital
[2023-06-19 18:05] LABS: Glucose Point of Care 86 mg/dl (65-105)
--- NOTE | 2023-06-19 18:25 | PC.NURSE ---
family refuse blood work and medications. provider aware.
[2023-06-19 19:05] VITALS: BP 123/77; PULSE 62; RESP 12; O2SAT 99
== END 2023-06-19 19:15 | disposition home or self-care (01) ==
PROVIDERS: Emergency Provider Emergency Medicine; PCP Family Medicine
DX: G40.909 Epilepsy, unspecified, not intractable, without status epilepticus (principal); S01.01XA Laceration without foreign body of scalp, initial encounter; S62.614A Displaced fracture of proximal phalanx of right ring finger, initial encounter for closed fracture; E88.81 Metabolic syndrome and other insulin resistance; E78.2 Mixed hyperlipidemia; Z79.82 Long term (current) use of aspirin; W18.39XA Other fall on same level, initial encounter
CPT/HCPCS: 12002; 70450; 73130; 82948; 99284

== ENCOUNTER 2024-05-08 14:58 | Outpatient (CLI) | payer MEDICARE, SELFPAY ==
--- NOTE | ~2024-05-08 | XR_ITS ---
Left Forearm AP and lateral views of the left forearm were performed. Clinical History: Pain Findings: No fracture or dislocation is seen. Osseous alignment in anatomic. Joint spaces are prese rved. Soft tissues are unremarkable. Impression: Unremarkable exam. Reviewed, dictated and finalized at location M. Impression: Unremarkable exam.
--- NOTE | ~2024-05-08 | XR_ITS ---
Left wrist Technique: PA, oblique, lateral, and ulnar deviation views were obtained. Clinical History: Pain Findings: No acute fracture or dislocation is seen. Osseous alignment is anatomic. Joint spaces are p reserved. Soft tissues are unremarkable. Impression: Unremarkable left wrist radiographs. Reviewed, dictated and finalized at location . Impression: Unremarkable left wrist radiographs.
== END 2024-05-08 14:59 ==
LOC: GOSHIMG 14:59
PROVIDERS: PCP Family Medicine; Visit Provider Family Medicine
DX: M79.632 Pain in left forearm (principal); M25.532 Pain in left wrist; R51.9 Headache, unspecified
CPT/HCPCS: 73090; 73110

== ENCOUNTER 2025-01-09 17:02 | Outpatient (CLI) | payer MEDICARE, SELFPAY ==
--- NOTE | ~2025-01-09 | XR_ITS ---
HISTORY: W19.XXXA - Unspecified fall, initial encounter COMPARISON: 03/10/2023 TECHNIQUE: 4 views of the right knee were performed FINDINGS: No acute or subacute fracture. Medial and lateral tibiofemoral joint space narrowing is identified. Small suprapatellar joint effusion is identified. The infrapatellar joint space is clear. IMPRESSION: Small suprapatellar joint effusion. Degenerative disease without acute fracture. Reviewed, dictated and finalized at location A. [employer] IMPRESSION: Small suprapatellar joint effusion. Degenerative disease without a cute fracture.
== END 2025-01-09 17:03 | disposition home or self-care (01) ==
LOC: MICIMG 17:02
PROVIDERS: PCP Family Medicine; Visit Provider Family Medicine
DX: M25.461 Effusion, right knee (principal); W19.XXXA Unspecified fall, initial encounter; M17.11 Unilateral primary osteoarthritis, right knee
CPT/HCPCS: 73564

== ENCOUNTER 2025-08-02 10:07 | Outpatient (CLI) | payer MEDICARE, SELFPAY ==
--- NOTE | ~2025-08-02 | XR_ITS ---
XR chest 2V 08/02/2025 12:13 Indication: Striking against unspecified object. Procedure: 2 view chest Comparison: 09/15/2022 Findings: there is chronic bibasilar scarring. Small right pleural effusion. Heart size normal. No edema or pneumothorax. There is scoliosis. Battery pack overlies the left chest with leads overlying the left supraclavicular region. Impression: 1: Small right pleural effusion. 2: Chronic bibasilar atelectasis/scarring. Reviewed, dictated and finalized at location O. Impression: 1: Small right pleural effusion. 2: Chronic bibasilar atelectasis/scarring.
--- NOTE | ~2025-08-02 | XR_ITS ---
EXAM/ PROCEDURE: XR lumbar spine 2-3V, XR thoracic spine 3V - 08/02/2025 10:24 CDT HISTORY: 69 years old Male with Striking against unspecified object with subse, fell last we COMPARISON: None available TECHNIQUE: Three view(s) each FINDINGS/ IMPRESSION: There are no fractures or dislocations.Multilevel degenerative changes are seen. Dextroscoliosis of thoracolumbar spine. Subacute/chronic fractures of the right mid ribs. Reviewed, dictated and finalized at location N.
== END 2025-08-02 10:08 | disposition home or self-care (01) ==
LOC: GOSHIMG 10:08
PROVIDERS: PCP Nurse Practitioner Family; Visit Provider Nurse Practitioner Family
DX: R07.81 Pleurodynia (principal); W18.00XA Striking against unspecified object with subsequent fall, initial encounter; J90 Pleural effusion, not elsewhere classified; R91.8 Other nonspecific abnormal finding of lung field
CPT/HCPCS: 71046; 72072; 72100